=== PATIENT | male | born 1935 | race African-American/Black ===

== ENCOUNTER 2018-10-27 10:38 | Inpatient (IN) ==
[2018-10-27 12:49] LABS: Apearance,Urine Slightly Hazy (Clear); Bacteria,Urine Occasional /HPF (Few); Bilirubin,Urine Negative (Negative); Blood, Urine Negative (Negative); Glucose,Urine (UA) 150 mg/dL (Negative); Ketones,Urine Negative (Negative); Mucus,Urine Occasional /LPF (Occasional); Nitrite,Urine Negative (Negative); Protein,Urine 30 MG/DL; RBC,Urine 4 /HPF (0-4); Squamous Epithelial Cell,Urine Occasional /HPF (0-10); Urine Color Yellow (Yellow); Urine Specific Gravity 1.019 (1.001-1.035); Urine Urobilinogen < 2.0 EU/DL (0.2-1.0); WBC,Urine <1 /HPF (0-6)
[2018-10-27] MEDS ORDERED: ONDANSETRON 4 MG/2 ML VIAL IV STA (14:34)
[2018-10-27] MEDS ORDERED: HYDROmorphone 2 MG/1 ML VIAL IV STA (14:34)
[2018-10-27] MEDS ORDERED: ONDANSETRON 4 MG/2 ML VIAL ONE (14:35)
[2018-10-27] MEDS ORDERED: HYDROmorphone 2 MG/1 ML VIAL ONE (14:35)
[2018-10-27 14:57] LABS: Basophils % 0.4 % (0.0-0.8); Eosinophils # 0.1 10*3/uL (0.0-0.87); Eosinophils % 1.2 % (0.00-10.9); Hematocrit 34.2 VOL% (42.0-52.0); Hemoglobin 10.6 GM/DL (14.0-18.0); Immature Granulocytes % 0.6 %; Immature Granulocytes Absolute 0.06 #; Lymphocytes # 1.7 10*3/uL (1.4-4.0); Lymphocytes % 17.3 % (21.2-54.2); Mean Corpuscular Volume 93.4 FL (87-102); Mean Platelet Volume 9.6 FL (9.6-12.0); Monocytes % 11.4 % (1.7-12.7); Neutrophils % 69.1 % (38.7-73.9); Platelet Count 234 T/CUMM (130-400); Red Blood Count 3.66 MC/CUMM (3.8-5.5); Red Cell Distribution Width 13.2 % (9.3-17.3); White Blood Count 9.5 T/CUMM (4-12)
[2018-10-27] MEDS ORDERED: MECLIZINE 25 MG TABLET PO PRN (16:27)
[2018-10-27] MEDS ORDERED: DICLOFENAC 1% GEL 100 GM TUBE TOP PRN (16:27)
[2018-10-27] MEDS ORDERED: LORATADINE 10 MG TABLET PO PRN (16:27)
[2018-10-27] MEDS ORDERED: DEXTROSE 50% 25 GM/50 ML SYRINGE IV PRN (16:37)
[2018-10-27] MEDS ORDERED: GLUCAGON 1 MG VIAL IM PRN (16:37)
[2018-10-27] MEDS: FERROUS SULFATE 325 MG TABLET PO SCH (20:47)
[2018-10-27] MEDS: OMEGA 3 ACID ETHYL ESTERS 1 GM CAPSULE PO SCH (20:47)
[2018-10-27] MEDS: GABAPENTIN 400 MG CAPSULE PO SCH (20:47)
[2018-10-27] MEDS: DONEPEZIL 10 MG TABLET PO SCH (20:47)
[2018-10-27] MEDS: OXYBUTYNIN XL 5 MG TABLET PO SCH (20:58)
[2018-10-28 04:52] LABS: Calcium 8.7 MG/DL (8.5-10.1)
[2018-10-28] MEDS: LOSARTAN/HCTZ 50-12.5 MG TABLET PO SCH (08:36)
[2018-10-28] MEDS: ATORVASTATIN 80 MG TABLET PO SCH (08:36)
[2018-10-28] MEDS: GLIMEPIRIDE 4 MG TABLET PO SCH (08:36)
[2018-10-28] MEDS: FERROUS SULFATE 325 MG TABLET PO SCH ×2 (08:36→21:30)
[2018-10-28] MEDS: sitaGLIPtin 25 MG TABLET PO SCH (08:37)
[2018-10-28] MEDS: OMEGA 3 ACID ETHYL ESTERS 1 GM CAPSULE PO SCH ×2 (08:37→21:28)
[2018-10-28] MEDS: PARoxetine 20 MG TABLET PO SCH (08:37)
[2018-10-28] MEDS: CLOPIDOGREL 75 MG TABLET PO SCH (08:37)
[2018-10-28] MEDS: VITAMIN E 400 UNIT CAPSULE PO SCH (08:37)
[2018-10-28] MEDS: CHOLECALCIFEROL 400 UNIT TABLET PO SCH (08:37)
[2018-10-28] MEDS: GABAPENTIN 400 MG CAPSULE PO SCH ×2 (08:37→21:29)
[2018-10-28] MEDS ORDERED: Cyanocobalamin (Vitamin B-12) [Vitamin B-12] 2,500 MCG SL SCH (09:00)
[2018-10-28] MEDS ORDERED: BUPIVACAINE 0.5% 50 ML VIAL MISC INJ ONE (09:30)
[2018-10-28] MEDS ORDERED: BUPIVACAINE 0.5% 10 ML VIAL MISC INJ ONE (09:30)
[2018-10-28] MEDS ORDERED: BETAMETH SODIUM PHOS/ACETATE 30 MG/5 ML VIAL INTRAARTIC ONE ×2 (09:30→17:20)
[2018-10-28] MEDS ORDERED: LIDOCAINE 1% 20 ML VIAL MISC INJ ONE (09:30)
[2018-10-28 18:58] LABS: Cholesterol Crystals None Seen /LPF
[2018-10-28] MEDS: methylPREDNISolone SOD SUC 40 MG/1 ML VIAL IV SCH (20:53)
[2018-10-28 20:57] LABS: Neutrophils,Synovial Fluid 98 %
[2018-10-28] MEDS: DONEPEZIL 10 MG TABLET PO SCH (21:28)
[2018-10-28] MEDS: ACETAMINOPHEN/CODEINE 300-30 MG TABLET PO PRN (21:29)
[2018-10-28] MEDS: OXYBUTYNIN XL 5 MG TABLET PO SCH (21:30)
[2018-10-29 08:18] LABS: Cholesterol Crystals None Seen /LPF
[2018-10-29 08:31] LABS: Lymphocytes,Synovial Fluid 8 %; Neutrophils,Synovial Fluid 92 %
[2018-10-29] MEDS ORDERED: LIDOCAINE 1% 20 ML VIAL ONE (09:53)
[2018-10-29] MEDS ORDERED: DEXAMETHASONE 4 MG/1 ML VIAL ONE (09:53)
[2018-10-29] MEDS ORDERED: LACTATED RINGERS 1,000 ML IV SCH (10:30)
[2018-10-29] MEDS ORDERED: fentaNYL 100 MCG/2 ML VIAL ONE (11:17)
[2018-10-29] MEDS ORDERED: PROPOFOL 200 MG/20 ML VIAL IV ONE (11:17)
[2018-10-29] MEDS: methylPREDNISolone SOD SUC 40 MG/1 ML VIAL IV SCH ×2 (12:23→21:38)
[2018-10-29] MEDS: GABAPENTIN 400 MG CAPSULE PO SCH ×2 (12:24→21:39)
[2018-10-29] MEDS: CHOLECALCIFEROL 400 UNIT TABLET PO SCH (12:24)
[2018-10-29] MEDS: INSULIN LISPRO 100 UNIT/ML SUBCUT SCH ×3 (12:24→21:37)
[2018-10-29] MEDS: ATORVASTATIN 80 MG TABLET PO SCH (12:24)
[2018-10-29] MEDS: PARoxetine 20 MG TABLET PO SCH (12:25)
[2018-10-29] MEDS: LOSARTAN/HCTZ 50-12.5 MG TABLET PO SCH (12:25)
[2018-10-29] MEDS: CLOPIDOGREL 75 MG TABLET PO SCH (12:25)
[2018-10-29] MEDS: FERROUS SULFATE 325 MG TABLET PO SCH ×2 (12:25→21:39)
[2018-10-29] MEDS: OMEGA 3 ACID ETHYL ESTERS 1 GM CAPSULE PO SCH ×2 (12:25→21:39)
[2018-10-29] MEDS: sitaGLIPtin 25 MG TABLET PO SCH (12:25)
[2018-10-29] MEDS: VITAMIN E 400 UNIT CAPSULE PO SCH (12:26)
[2018-10-29] MEDS: GLIMEPIRIDE 4 MG TABLET PO SCH (12:26)
[2018-10-29] MEDS ORDERED: GLUCAGON 1 MG VIAL IM PRN (15:13)
[2018-10-29] MEDS ORDERED: DEXTROSE 50% 25 GM/50 ML SYRINGE IV PRN (15:13)
[2018-10-29] MEDS: OXYBUTYNIN XL 5 MG TABLET PO SCH (21:39)
[2018-10-29] MEDS: DONEPEZIL 10 MG TABLET PO SCH (21:39)
[2018-10-29] MEDS: ACETAMINOPHEN/CODEINE 300-30 MG TABLET PO PRN (23:34)
[2018-10-30 04:31] LABS: Basophils % 0.1 % (0.0-0.8); Hematocrit 28.5 VOL% (42.0-52.0); Hemoglobin 9.1 GM/DL (14.0-18.0); Immature Granulocytes % 1.2 %; Immature Granulocytes Absolute 0.21 #; Lymphocytes # 0.9 10*3/uL (1.4-4.0); Lymphocytes % 5.6 % (21.2-54.2); Mean Corpuscular HGB Conc 31.9 GM/DL (32-36); Mean Corpuscular Volume 89.9 FL (87-102); Mean Platelet Volume 9.8 FL (9.6-12.0); Monocytes % 3.9 % (1.7-12.7); Neutrophils % 89.2 % (38.7-73.9); Platelet Count 275 T/CUMM (130-400); Red Blood Count 3.17 MC/CUMM (3.8-5.5); Red Cell Distribution Width 12.7 % (9.3-17.3); White Blood Count 16.9 T/CUMM (4-12)
[2018-10-30 04:46] LABS: Calcium 9.1 MG/DL (8.5-10.1); Osmolality,Calculated 290.1 MOS/KG (273-304)
[2018-10-30] MEDS: methylPREDNISolone SOD SUC 40 MG/1 ML VIAL IV SCH ×2 (10:12→21:50)
[2018-10-30] MEDS: OMEGA 3 ACID ETHYL ESTERS 1 GM CAPSULE PO SCH ×2 (10:13→21:51)
[2018-10-30] MEDS: CHOLECALCIFEROL 400 UNIT TABLET PO SCH (10:13)
[2018-10-30] MEDS: GLIMEPIRIDE 4 MG TABLET PO SCH (10:13)
[2018-10-30] MEDS: INSULIN LISPRO 100 UNIT/ML SUBCUT SCH ×4 (10:13→21:52)
[2018-10-30] MEDS: VITAMIN E 400 UNIT CAPSULE PO SCH (10:13)
[2018-10-30] MEDS: ATORVASTATIN 80 MG TABLET PO SCH (10:14)
[2018-10-30] MEDS: LOSARTAN/HCTZ 50-12.5 MG TABLET PO SCH (10:14)
[2018-10-30] MEDS: CLOPIDOGREL 75 MG TABLET PO SCH (10:14)
[2018-10-30] MEDS: GABAPENTIN 400 MG CAPSULE PO SCH ×2 (10:14→21:50)
[2018-10-30] MEDS: FERROUS SULFATE 325 MG TABLET PO SCH ×2 (10:16→21:51)
[2018-10-30] MEDS: PARoxetine 20 MG TABLET PO SCH (10:16)
[2018-10-30] MEDS: sitaGLIPtin 25 MG TABLET PO SCH (10:16)
[2018-10-30] MEDS: SODIUM CHLORIDE 0.9% 1,000 ML IV SCH ×2 (10:30→23:13)
[2018-10-30] MEDS: DONEPEZIL 10 MG TABLET PO SCH (21:51)
[2018-10-30] MEDS: OXYBUTYNIN XL 5 MG TABLET PO SCH (21:51)
[2018-10-31 06:12] LABS: Calcium 9.3 MG/DL (8.5-10.1); Osmolality,Calculated 293.1 MOS/KG (273-304)
[2018-10-31] MEDS: OMEGA 3 ACID ETHYL ESTERS 1 GM CAPSULE PO SCH ×2 (08:53→21:04)
[2018-10-31] MEDS: methylPREDNISolone SOD SUC 40 MG/1 ML VIAL IV SCH ×2 (08:53→21:32)
[2018-10-31] MEDS: INSULIN LISPRO 100 UNIT/ML SUBCUT SCH ×4 (08:53→21:04)
[2018-10-31] MEDS: CHOLECALCIFEROL 400 UNIT TABLET PO SCH (08:54)
[2018-10-31] MEDS: GABAPENTIN 400 MG CAPSULE PO SCH ×2 (08:54→21:04)
[2018-10-31] MEDS: sitaGLIPtin 25 MG TABLET PO SCH (08:54)
[2018-10-31] MEDS: LOSARTAN/HCTZ 50-12.5 MG TABLET PO SCH (08:54)
[2018-10-31] MEDS: VITAMIN E 400 UNIT CAPSULE PO SCH (08:54)
[2018-10-31] MEDS: ATORVASTATIN 80 MG TABLET PO SCH (08:55)
[2018-10-31] MEDS: PARoxetine 20 MG TABLET PO SCH (08:55)
[2018-10-31] MEDS: FERROUS SULFATE 325 MG TABLET PO SCH ×2 (08:55→21:04)
[2018-10-31] MEDS: CLOPIDOGREL 75 MG TABLET PO SCH (08:55)
[2018-10-31] MEDS: GLIMEPIRIDE 4 MG TABLET PO SCH (08:55)
[2018-10-31] MEDS: SODIUM CHLORIDE 0.9% 1,000 ML IV SCH (14:16)
[2018-10-31] MEDS: OXYBUTYNIN XL 5 MG TABLET PO SCH (21:04)
[2018-10-31] MEDS: DONEPEZIL 10 MG TABLET PO SCH (21:04)
[2018-10-31] MEDS: ACETAMINOPHEN/CODEINE 300-30 MG TABLET PO PRN (21:05)
[2018-11-01 06:39] LABS: Calcium 8.7 MG/DL (8.5-10.1); Osmolality,Calculated 288.8 MOS/KG (273-304)
[2018-11-01] MEDS: CHOLECALCIFEROL 400 UNIT TABLET PO SCH (08:47)
[2018-11-01] MEDS: sitaGLIPtin 25 MG TABLET PO SCH (08:47)
[2018-11-01] MEDS: GABAPENTIN 400 MG CAPSULE PO SCH (08:48)
[2018-11-01] MEDS: CLOPIDOGREL 75 MG TABLET PO SCH (08:48)
[2018-11-01] MEDS: ATORVASTATIN 80 MG TABLET PO SCH (08:48)
[2018-11-01] MEDS: PARoxetine 20 MG TABLET PO SCH (08:48)
[2018-11-01] MEDS: VITAMIN E 400 UNIT CAPSULE PO SCH (08:48)
[2018-11-01] MEDS: GLIMEPIRIDE 4 MG TABLET PO SCH (08:48)
[2018-11-01] MEDS: methylPREDNISolone SOD SUC 40 MG/1 ML VIAL IV SCH (08:49)
[2018-11-01] MEDS: FERROUS SULFATE 325 MG TABLET PO SCH (08:49)
[2018-11-01] MEDS: OMEGA 3 ACID ETHYL ESTERS 1 GM CAPSULE PO SCH (08:49)
[2018-11-01] MEDS: INSULIN LISPRO 100 UNIT/ML SUBCUT SCH ×2 (08:49→12:40)
[2018-11-01] MEDS ORDERED: LOSARTAN/HCTZ 50-12.5 MG TABLET PO SCH (09:00)
[2018-11-01 12:44] VITALS: BP 139/60
== END 2018-11-01 12:20 | DRG 552 ==
LOC: EDUNIT# → N.EDINP 10:38 → N.ED 10:38 → N.EDINP 15:03 → N.2E 15:18
PROVIDERS: ADMIT Internal Medicine; ATTEND Internal Medicine

== ENCOUNTER 2021-02-28 10:40 | Observation (INO) ==
[2021-02-28 12:40] LABS: Basophils # 0.1 10*3/uL (0.0-0.2); Basophils % 0.7 % (0.0-0.8); Eosinophils # 0.3 10*3/uL (0.0-0.87); Eosinophils % 4.4 % (0.00-10.9); Hematocrit 30.7 VOL% (42.0-52.0); Hemoglobin 9.6 GM/DL (14.0-18.0); Immature Granulocytes % 0.4 %; Immature Granulocytes Absolute 0.03 #; Lymphocytes # 1.9 10*3/uL (1.4-4.0); Lymphocytes % 28.2 % (21.2-54.2); Mean Corpuscular HGB Conc 31.3 GM/DL (32-36); Mean Platelet Volume 9.7 FL (9.6-12.0); Neutrophils % 58.3 % (38.7-73.9); Platelet Count 160 T/CUMM (130-400); Red Blood Count 3.23 MC/CUMM (3.8-5.5); Red Cell Distribution Width 13.4 % (9.3-17.3); White Blood Count 6.8 T/CUMM (4-12)
[2021-02-28 13:01] LABS: INR 1.1; PT Patient Result 11.9 SECS (10.5-12.0); Partial Thromboplastin Time 28.3 SECS (23.9-33.8)
[2021-02-28 13:09] LABS: Albumin 3.1 G/DL (3.4-5.0); Bilirubin,Total 0.4 MG/DL (0.20-1.00); Calcium 8.6 MG/DL (8.5-10.1); Osmolality,Calculated 283.3 MOS/KG (273-304); Potassium 4.2 MMOL/L (3.5-5.1); Total Protein 6.9 G/DL (6.4-8.2)
[2021-02-28] MEDS ORDERED: DEXTROSE 50% 25 GM/50 ML VIAL IV STA (13:20)
[2021-02-28] MEDS ORDERED: ONDANSETRON 4 MG/2 ML VIAL IV PRN (13:29)
[2021-02-28] MEDS ORDERED: DICLOFENAC 1% GEL 100 GM TUBE TOP PRN (17:14)
[2021-02-28] MEDS ORDERED: MECLIZINE 25 MG TABLET PO PRN (17:14)
[2021-02-28] MEDS ORDERED: LORATADINE 10 MG TABLET PO PRN (17:14)
[2021-02-28] MEDS: OXYBUTYNIN XL 10 MG TABLET PO SCH (21:10)
[2021-02-28] MEDS: GABAPENTIN 400 MG CAPSULE PO SCH (21:10)
[2021-02-28] MEDS: DONEPEZIL 10 MG TABLET PO SCH (21:11)
[2021-02-28] MEDS: OMEGA 3 ACID ETHYL ESTERS 1 GM CAPSULE PO SCH (21:11)
[2021-02-28] MEDS: ATORVASTATIN 80 MG TABLET PO SCH (21:11)
[2021-02-28] MEDS: busPIRone 5 MG TABLET PO SCH (21:11)
[2021-02-28] MEDS: MEMANTINE 5 MG TABLET PO SCH (21:11)
[2021-02-28] MEDS: traMADol 50 MG TABLET PO PRN (21:12)
[2021-03-01 05:04] LABS: Basophils % 0.6 % (0.0-0.8); Eosinophils # 0.3 10*3/uL (0.0-0.87); Eosinophils % 4.7 % (0.00-10.9); Hematocrit 31.2 VOL% (42.0-52.0); Hemoglobin 9.8 GM/DL (14.0-18.0); Immature Granulocytes % 0.3 %; Immature Granulocytes Absolute 0.02 #; Lymphocytes # 1.7 10*3/uL (1.4-4.0); Lymphocytes % 26.2 % (21.2-54.2); Mean Corpuscular HGB Conc 31.4 GM/DL (32-36); Mean Corpuscular Volume 94.8 FL (87-102); Mean Platelet Volume 10.2 FL (9.6-12.0); Monocytes % 7.4 % (1.7-12.7); Neutrophils % 60.8 % (38.7-73.9); Platelet Count 185 T/CUMM (130-400); Red Blood Count 3.29 MC/CUMM (3.8-5.5); Red Cell Distribution Width 13.3 % (9.3-17.3); White Blood Count 6.4 T/CUMM (4-12)
[2021-03-01 05:26] LABS: Alanine Aminotransferase 12 U/L (16-61); Albumin 2.8 G/DL (3.4-5.0); Alkaline Phosphatase 66 U/L (45-117); Aspartate Amino Transferase 18 U/L (0-37); Bilirubin,Total < 0.39 MG/DL (0.20-1.00); Blood Urea Nitrogen 28 MG/DL (7-18); Carbon Dioxide 23 MMOL/L (21-32); Glucose 73 MG/DL (74-106); Osmolality,Calculated 285.3 MOS/KG (273-304); Potassium 4.1 MMOL/L (3.5-5.1); Sodium 141 MMOL/L (136-145); Total Protein 7.3 G/DL (6.4-8.2)
[2021-03-01 05:30] LABS: Estimated Glom Filtration Rate 45 ML/MIN
[2021-03-01] MEDS: LEVOTHYROXINE 50 MCG TABLET PO SCH (06:17)
[2021-03-01] MEDS: PANTOPRAZOLE 40 MG TABLET PO SCH (08:46)
[2021-03-01] MEDS: LOSARTAN/HCTZ 50-12.5 MG TABLET PO SCH (08:46)
[2021-03-01] MEDS: OMEGA 3 ACID ETHYL ESTERS 1 GM CAPSULE PO SCH ×2 (08:46→20:42)
[2021-03-01] MEDS: FOLIC ACID 1 MG TABLET PO SCH (08:46)
[2021-03-01] MEDS: PARoxetine 20 MG TABLET PO SCH (08:46)
[2021-03-01] MEDS: VITAMIN E 400 UNIT CAPSULE PO SCH (08:46)
[2021-03-01] MEDS: busPIRone 5 MG TABLET PO SCH ×2 (08:46→20:42)
[2021-03-01] MEDS: GABAPENTIN 400 MG CAPSULE PO SCH ×2 (08:47→20:42)
[2021-03-01] MEDS: [UNRECOGNIZED DRUG - OTHER] SL SCH (08:47)
[2021-03-01] MEDS: ASPIRIN 325 MG TABLET PO SCH (08:47)
[2021-03-01] MEDS: MEMANTINE 5 MG TABLET PO SCH ×2 (08:47→20:42)
[2021-03-01] MEDS: CHOLECALCIFEROL 400 UNIT TABLET PO SCH (08:47)
[2021-03-01] MEDS: sitaGLIPtin 25 MG TABLET PO SCH (08:53)
[2021-03-01] MEDS: CLOPIDOGREL 75 MG TABLET PO SCH (08:53)
[2021-03-01] MEDS: [UNRECOGNIZED DRUG - OTHER] PO SCH (08:57)
[2021-03-01] MEDS: OXYBUTYNIN XL 10 MG TABLET PO SCH (20:42)
[2021-03-01] MEDS: ATORVASTATIN 80 MG TABLET PO SCH (20:42)
[2021-03-01] MEDS: DONEPEZIL 10 MG TABLET PO SCH (20:42)
[2021-03-01] MEDS: traMADol 50 MG TABLET PO PRN (20:42)
[2021-03-02 05:02] LABS: Basophils # 0.1 10*3/uL (0.0-0.2); Eosinophils # 0.3 10*3/uL (0.0-0.87); Eosinophils % 4.5 % (0.00-10.9); Hematocrit 28.3 VOL% (42.0-52.0); Immature Granulocytes % 0.2 %; Immature Granulocytes Absolute 0.01 #; Lymphocytes # 1.7 10*3/uL (1.4-4.0); Lymphocytes % 26.9 % (21.2-54.2); Mean Corpuscular HGB Conc 31.8 GM/DL (32-36); Mean Corpuscular Volume 94.3 FL (87-102); Mean Platelet Volume 10.2 FL (9.6-12.0); Monocytes % 8.1 % (1.7-12.7); Neutrophils % 59.3 % (38.7-73.9); Platelet Count 185 T/CUMM (130-400); Red Cell Distribution Width 13.2 % (9.3-17.3); White Blood Count 6.2 T/CUMM (4-12)
[2021-03-02 05:32] LABS: Calcium 8.5 MG/DL (8.5-10.1); Osmolality,Calculated 282.7 MOS/KG (273-304); Potassium 4.5 MMOL/L (3.5-5.1)
[2021-03-02] MEDS: LEVOTHYROXINE 50 MCG TABLET PO SCH (06:18)
[2021-03-02] MEDS: CHOLECALCIFEROL 400 UNIT TABLET PO SCH (08:10)
[2021-03-02] MEDS: LOSARTAN/HCTZ 50-12.5 MG TABLET PO SCH (08:10)
[2021-03-02] MEDS: sitaGLIPtin 25 MG TABLET PO SCH (08:10)
[2021-03-02] MEDS: FOLIC ACID 1 MG TABLET PO SCH (08:10)
[2021-03-02] MEDS: OMEGA 3 ACID ETHYL ESTERS 1 GM CAPSULE PO SCH (08:10)
[2021-03-02] MEDS: ASPIRIN 325 MG TABLET PO SCH (08:10)
[2021-03-02] MEDS: GABAPENTIN 400 MG CAPSULE PO SCH (08:10)
[2021-03-02] MEDS: MEMANTINE 5 MG TABLET PO SCH (08:10)
[2021-03-02] MEDS: PARoxetine 20 MG TABLET PO SCH (08:10)
[2021-03-02] MEDS: CLOPIDOGREL 75 MG TABLET PO SCH (08:10)
[2021-03-02] MEDS: VITAMIN E 400 UNIT CAPSULE PO SCH (08:10)
[2021-03-02] MEDS: PANTOPRAZOLE 40 MG TABLET PO SCH (08:11)
[2021-03-02] MEDS: [UNRECOGNIZED DRUG - OTHER] SL SCH (08:11)
[2021-03-02] MEDS: [UNRECOGNIZED DRUG - OTHER] PO SCH (08:11)
[2021-03-02] MEDS: busPIRone 5 MG TABLET PO SCH (08:11)
[2021-03-02 11:56] VITALS: BP 150/64
[2021-03-03] MEDS ORDERED: METHOTREXATE 2.5 MG TABLET PO SCH (09:00)
== END 2021-03-02 12:33 | disposition home health service (06) ==
LOC: EDUNIT# → EDBD → N.EDINP 10:40 → N.ED 10:40 → N.3E 17:05
PROVIDERS: ADMIT Internal Medicine; ATTEND Internal Medicine

== ENCOUNTER 2021-03-26 09:04 | Inpatient (IN) ==
[2021-03-26 09:52] LABS: Basophils % 0.5 % (0.0-0.8); Eosinophils # 0.2 10*3/uL (0.0-0.87); Eosinophils % 1.9 % (0.00-10.9); Hematocrit 28.6 VOL% (42.0-52.0); Hemoglobin 8.8 GM/DL (14.0-18.0); Immature Granulocytes % 0.6 %; Immature Granulocytes Absolute 0.05 #; Lymphocytes # 1.4 10*3/uL (1.4-4.0); Lymphocytes % 17.1 % (21.2-54.2); Mean Corpuscular HGB Conc 30.8 GM/DL (32-36); Mean Corpuscular Volume 93.8 FL (87-102); Mean Platelet Volume 10.1 FL (9.6-12.0); Monocytes % 6.2 % (1.7-12.7); Neutrophils % 73.7 % (38.7-73.9); Platelet Count 231 T/CUMM (130-400); Red Blood Count 3.05 MC/CUMM (3.8-5.5); White Blood Count 7.9 T/CUMM (4-12)
[2021-03-26 10:13] LABS: Calcium 9.2 MG/DL (8.5-10.1); Osmolality,Calculated 284.7 MOS/KG (273-304); Potassium 4.1 MMOL/L (3.5-5.1)
[2021-03-26] MEDS ORDERED: ONDANSETRON 4 MG/2 ML VIAL IV STA (10:13)
[2021-03-26] MEDS ORDERED: HYDROmorphone 2 MG/1 ML VIAL IV STA ×2 (10:13→12:33)
[2021-03-26] MEDS ORDERED: DEXTROSE 50% 25 GM/50 ML VIAL IV PRN (11:49)
[2021-03-26] MEDS ORDERED: GLUCAGON 1 MG VIAL IM PRN (11:49)
[2021-03-26] MEDS ORDERED: DICLOFENAC 1% GEL 100 GM TUBE TOP PRN (11:51)
[2021-03-26] MEDS ORDERED: LORATADINE 10 MG TABLET PO PRN (11:51)
[2021-03-26] MEDS ORDERED: BACLOFEN 20 MG TABLET PO ONE (12:14)
[2021-03-26 13:07] LABS: Uric Acid 5.4 MG/DL (3.5-7.2)
[2021-03-26] MEDS: SODIUM CHLORIDE 0.45% 1,000 ML IV SCH (13:20)
[2021-03-26] MEDS: BACLOFEN 10 MG TABLET PO SCH ×2 (15:03→21:20)
[2021-03-26] MEDS: ACETAMINOPHEN 325 MG TABLET PO PRN (15:03)
[2021-03-26] MEDS: OXYBUTYNIN XL 10 MG TABLET PO SCH (18:03)
[2021-03-26] MEDS: FONDAPARINUX 2.5 MG/0.5 ML SYRINGE SUBCUT SCH (21:19)
[2021-03-26] MEDS: ATORVASTATIN 80 MG TABLET PO SCH (21:19)
[2021-03-26] MEDS: AMITRIPTYLINE 10 MG TABLET PO SCH (21:19)
[2021-03-26] MEDS: busPIRone 5 MG TABLET PO SCH (21:19)
[2021-03-26] MEDS: GABAPENTIN 400 MG CAPSULE PO SCH (21:19)
[2021-03-26] MEDS: INSULIN LISPRO 100 UNIT/ML SUBCUT SCH (21:19)
[2021-03-26] MEDS: OMEGA 3 ACID ETHYL ESTERS 1 GM CAPSULE PO SCH (21:19)
[2021-03-26] MEDS: DOCUSATE SODIUM 100 MG CAPSULE PO SCH (21:20)
[2021-03-26] MEDS: DONEPEZIL 10 MG TABLET PO SCH (21:20)
[2021-03-26] MEDS: MEMANTINE 5 MG TABLET PO SCH (21:20)
[2021-03-27] MEDS: SODIUM CHLORIDE 0.45% 1,000 ML IV SCH ×2 (00:53→11:00)
[2021-03-27 05:13] LABS: Basophils # 0.1 10*3/uL (0.0-0.2); Basophils % 0.6 % (0.0-0.8); Eosinophils # 0.2 10*3/uL (0.0-0.87); Eosinophils % 2.3 % (0.00-10.9); Hematocrit 26.3 VOL% (42.0-52.0); Hemoglobin 8.3 GM/DL (14.0-18.0); Immature Granulocytes % 0.5 %; Immature Granulocytes Absolute 0.04 #; Lymphocytes # 1.6 10*3/uL (1.4-4.0); Lymphocytes % 19.8 % (21.2-54.2); Mean Corpuscular HGB Conc 31.6 GM/DL (32-36); Mean Corpuscular Volume 93.9 FL (87-102); Mean Platelet Volume 10.4 FL (9.6-12.0); Monocytes % 7.8 % (1.7-12.7); Platelet Count 215 T/CUMM (130-400)
[2021-03-27] MEDS: LEVOTHYROXINE 50 MCG TABLET PO SCH (05:37)
[2021-03-27] MEDS: INSULIN LISPRO 100 UNIT/ML SUBCUT SCH ×4 (08:50→21:13)
[2021-03-27] MEDS: CYANOCOBALAMIN 500 MCG TABLET PO SCH (09:11)
[2021-03-27] MEDS: busPIRone 5 MG TABLET PO SCH ×2 (09:12→20:59)
[2021-03-27] MEDS: VITAMIN E 400 UNIT CAPSULE PO SCH (09:12)
[2021-03-27] MEDS: CHOLECALCIFEROL 400 UNIT TABLET PO SCH (09:12)
[2021-03-27] MEDS: sitaGLIPtin 25 MG TABLET PO SCH (09:13)
[2021-03-27] MEDS: GABAPENTIN 400 MG CAPSULE PO SCH ×2 (09:13→20:59)
[2021-03-27] MEDS: DOCUSATE SODIUM 100 MG CAPSULE PO SCH ×2 (09:13→20:59)
[2021-03-27] MEDS: LOSARTAN/HCTZ 50-12.5 MG TABLET PO SCH (09:14)
[2021-03-27] MEDS: CLOPIDOGREL 75 MG TABLET PO SCH (09:14)
[2021-03-27] MEDS: FOLIC ACID 1 MG TABLET PO SCH (09:14)
[2021-03-27] MEDS: MEMANTINE 5 MG TABLET PO SCH ×2 (09:15→20:59)
[2021-03-27] MEDS: PANTOPRAZOLE 40 MG TABLET PO SCH (09:15)
[2021-03-27] MEDS: OMEGA 3 ACID ETHYL ESTERS 1 GM CAPSULE PO SCH ×2 (09:15→20:59)
[2021-03-27] MEDS: BACLOFEN 10 MG TABLET PO SCH (09:15)
[2021-03-27] MEDS: [UNRECOGNIZED DRUG - OTHER] PO SCH (09:41)
[2021-03-27 09:53] LABS: Alanine Aminotransferase 11 U/L (16-61); Albumin 2.7 G/DL (3.4-5.0); Alkaline Phosphatase 84 U/L (45-117); Aspartate Amino Transferase 19 U/L (0-37); Bilirubin,Direct < 0.100 MG/DL (0.0-0.20); Bilirubin,Indirect 0.3 MG/DL (0.0-1.0); Bilirubin,Total < 0.39 MG/DL (0.20-1.00); Total Protein 7.2 G/DL (6.4-8.2)
[2021-03-27] MEDS: methylPREDNISolone SOD SUC 40 MG/1 ML VIAL IV SCH ×2 (10:55→20:59)
[2021-03-27] MEDS: ACETAMINOPHEN 325 MG TABLET PO PRN (12:28)
[2021-03-27] MEDS: hydrALAZINE 20 MG/1 ML VIAL IV PRN ×2 (12:29→17:28)
[2021-03-27 17:10] LABS: Bacteria,Urine Moderate /HPF (Few); Bilirubin,Urine Negative (Negative); Blood, Urine Small mg/dL (Negative); Glucose,Urine (UA) Negative (Negative); Hyaline Casts,Urine 1 /LPF (0-3); Ketones,Urine Negative (Negative); Nitrite,Urine Negative (Negative); Protein,Urine Negative; RBC,Urine 3 /HPF (0-4); Squamous Epithelial Cell,Urine Occasional /HPF (0-10); Urine Appearance Slightly Hazy (Clear); Urine Color Straw (Yellow); Urine Specific Gravity 1.008 (1.001-1.035); Urine Urobilinogen < 2.0 EU/DL (0.2-1.0)
[2021-03-27] MEDS: AMITRIPTYLINE 10 MG TABLET PO SCH (20:59)
[2021-03-27] MEDS: FONDAPARINUX 2.5 MG/0.5 ML SYRINGE SUBCUT SCH (20:59)
[2021-03-27] MEDS: ATORVASTATIN 80 MG TABLET PO SCH (20:59)
[2021-03-27] MEDS: DONEPEZIL 10 MG TABLET PO SCH (20:59)
[2021-03-27] MEDS: OXYBUTYNIN XL 10 MG TABLET PO SCH (21:02)
[2021-03-28 06:06] LABS: Albumin 3.1 G/DL (3.4-5.0); Bilirubin,Total 1.3 MG/DL (0.20-1.00); Calcium 10.2 MG/DL (8.5-10.1); Osmolality,Calculated 282.8 MOS/KG (273-304); Potassium 4.5 MMOL/L (3.5-5.1); Total Protein 8.8 G/DL (6.4-8.2)
[2021-03-28] MEDS: LEVOTHYROXINE 50 MCG TABLET PO SCH (06:07)
[2021-03-28] MEDS: GABAPENTIN 400 MG CAPSULE PO SCH ×2 (08:07→21:02)
[2021-03-28] MEDS: LOSARTAN/HCTZ 50-12.5 MG TABLET PO SCH (08:07)
[2021-03-28] MEDS: VITAMIN E 400 UNIT CAPSULE PO SCH (08:07)
[2021-03-28] MEDS: hydrALAZINE 20 MG/1 ML VIAL IV PRN (08:07)
[2021-03-28] MEDS: FOLIC ACID 1 MG TABLET PO SCH (08:07)
[2021-03-28] MEDS: OMEGA 3 ACID ETHYL ESTERS 1 GM CAPSULE PO SCH ×2 (08:07→21:02)
[2021-03-28] MEDS: busPIRone 5 MG TABLET PO SCH ×2 (08:08→21:03)
[2021-03-28] MEDS: MEMANTINE 5 MG TABLET PO SCH ×2 (08:08→21:02)
[2021-03-28] MEDS: PANTOPRAZOLE 40 MG TABLET PO SCH (08:08)
[2021-03-28] MEDS: sitaGLIPtin 25 MG TABLET PO SCH (08:08)
[2021-03-28] MEDS: DOCUSATE SODIUM 100 MG CAPSULE PO SCH ×2 (08:08→21:02)
[2021-03-28] MEDS: CLOPIDOGREL 75 MG TABLET PO SCH (08:08)
[2021-03-28] MEDS: CYANOCOBALAMIN 500 MCG TABLET PO SCH (08:08)
[2021-03-28] MEDS: INSULIN LISPRO 100 UNIT/ML SUBCUT SCH ×4 (08:45→21:54)
[2021-03-28] MEDS: CHOLECALCIFEROL 400 UNIT TABLET PO SCH (08:46)
[2021-03-28] MEDS: methylPREDNISolone SOD SUC 40 MG/1 ML VIAL IV SCH ×2 (08:46→21:03)
[2021-03-28] MEDS: [UNRECOGNIZED DRUG - OTHER] PO SCH (08:46)
[2021-03-28] MEDS: traMADol 50 MG TABLET PO PRN ×2 (16:58→22:33)
[2021-03-28] MEDS: DONEPEZIL 10 MG TABLET PO SCH (21:02)
[2021-03-28] MEDS: AMITRIPTYLINE 10 MG TABLET PO SCH (21:02)
[2021-03-28] MEDS: OXYBUTYNIN XL 10 MG TABLET PO SCH (21:02)
[2021-03-28] MEDS: FONDAPARINUX 2.5 MG/0.5 ML SYRINGE SUBCUT SCH (21:03)
[2021-03-28] MEDS: ATORVASTATIN 80 MG TABLET PO SCH (21:03)
[2021-03-28] MEDS: SODIUM CHLORIDE 0.45% 1,000 ML IV SCH ×2 (21:07)
[2021-03-29] MEDS: LEVOTHYROXINE 50 MCG TABLET PO SCH (05:40)
[2021-03-29] MEDS: INSULIN LISPRO 100 UNIT/ML SUBCUT SCH ×2 (08:33→12:26)
[2021-03-29] MEDS: DOCUSATE SODIUM 100 MG CAPSULE PO SCH (08:34)
[2021-03-29] MEDS: VITAMIN E 400 UNIT CAPSULE PO SCH (08:34)
[2021-03-29] MEDS: GABAPENTIN 400 MG CAPSULE PO SCH (08:34)
[2021-03-29] MEDS: FOLIC ACID 1 MG TABLET PO SCH (08:34)
[2021-03-29] MEDS: LOSARTAN/HCTZ 50-12.5 MG TABLET PO SCH (08:34)
[2021-03-29] MEDS: MEMANTINE 5 MG TABLET PO SCH (08:34)
[2021-03-29] MEDS: CLOPIDOGREL 75 MG TABLET PO SCH (08:34)
[2021-03-29] MEDS: busPIRone 5 MG TABLET PO SCH (08:34)
[2021-03-29] MEDS: OMEGA 3 ACID ETHYL ESTERS 1 GM CAPSULE PO SCH (08:34)
[2021-03-29] MEDS: CHOLECALCIFEROL 400 UNIT TABLET PO SCH (08:34)
[2021-03-29] MEDS: sitaGLIPtin 25 MG TABLET PO SCH (08:34)
[2021-03-29] MEDS: PANTOPRAZOLE 40 MG TABLET PO SCH (08:34)
[2021-03-29] MEDS: methylPREDNISolone SOD SUC 40 MG/1 ML VIAL IV SCH (08:35)
[2021-03-29] MEDS: [UNRECOGNIZED DRUG - OTHER] PO SCH (08:35)
[2021-03-29] MEDS: CYANOCOBALAMIN 500 MCG TABLET PO SCH (09:49)
[2021-03-29 12:15] VITALS: BP 163/54
[2021-03-31] MEDS ORDERED: METHOTREXATE 2.5 MG TABLET PO SCH (09:00)
== END 2021-03-29 13:30 | disposition swing bed (61) | DRG 546 ==
LOC: EDBD → EDUNIT# → N.EDINP 09:04 → N.ED 09:04 → N.3E 12:51
PROVIDERS: ADMIT Internal Medicine; ATTEND Internal Medicine

== ENCOUNTER 2021-03-31 18:19 | Inpatient (IN) ==
[2021-03-31] MEDS ORDERED: ONDANSETRON 4 MG/2 ML VIAL ONE (18:57)
[2021-03-31] MEDS ORDERED: MORPHINE 2 MG/1 ML SYRINGE ONE (18:57)
[2021-03-31] MEDS ORDERED: ONDANSETRON 4 MG/2 ML VIAL IV STA ×2 (19:03→20:45)
[2021-03-31] MEDS ORDERED: MORPHINE 2 MG/1 ML SYRINGE IV STA (19:03)
[2021-03-31 20:00] LABS: Basophils # 0.1 10*3/uL (0.0-0.2); Basophils % 0.5 % (0.0-0.8); Eosinophils # 0.1 10*3/uL (0.0-0.87); Eosinophils % 0.5 % (0.00-10.9); Hemoglobin 9.5 GM/DL (14.0-18.0); Immature Granulocytes Absolute 0.13 #; Lymphocytes # 1.2 10*3/uL (1.4-4.0); Lymphocytes % 9.2 % (21.2-54.2); Mean Corpuscular HGB Conc 31.7 GM/DL (32-36); Mean Corpuscular Volume 91.2 FL (87-102); Mean Platelet Volume 10.4 FL (9.6-12.0); Monocytes % 6.8 % (1.7-12.7); Platelet Count 280 T/CUMM (130-400); Red Blood Count 3.29 MC/CUMM (3.8-5.5); Red Cell Distribution Width 13.4 % (9.3-17.3)
[2021-03-31 20:10] LABS: PT Patient Result 11.4 SECS (10.5-12.0); Partial Thromboplastin Time 25.6 SECS (23.8-32.1)
[2021-03-31 20:15] LABS: Calcium 9.6 MG/DL (8.5-10.1); Osmolality,Calculated 285.1 MOS/KG (273-304); Potassium 4.7 MMOL/L (3.5-5.1)
[2021-03-31] MEDS ORDERED: HYDROmorphone 2 MG/1 ML VIAL ONE (20:41)
[2021-03-31] MEDS ORDERED: HYDROmorphone 2 MG/1 ML VIAL IV STA (20:45)
[2021-03-31] MEDS ORDERED: ACETAMINOPHEN 325 MG TABLET PO PRN (22:12)
[2021-03-31] MEDS ORDERED: DEXTROSE 50% 25 GM/50 ML VIAL IV PRN (22:12)
[2021-03-31] MEDS ORDERED: ONDANSETRON 4 MG/2 ML VIAL IV PRN (22:12)
[2021-03-31] MEDS ORDERED: GLUCAGON 1 MG VIAL IM PRN (22:12)
[2021-03-31] MEDS: SODIUM CHLORIDE 0.45% 1,000 ML IV SCH (22:51)
[2021-04-01] MEDS: LEVOTHYROXINE 50 MCG TABLET PO SCH (05:08)
[2021-04-01] MEDS: SODIUM CHLORIDE 0.45% 1,000 ML IV SCH ×3 (06:27→23:56)
[2021-04-01] MEDS: INSULIN REGULAR 100 UNIT/ML SUBCUT SCH ×4 (09:20→21:30)
[2021-04-01] MEDS: PANTOPRAZOLE 40 MG TABLET PO SCH (09:21)
[2021-04-01] MEDS: MEMANTINE 5 MG TABLET PO SCH ×2 (09:21→20:33)
[2021-04-01] MEDS: oxyCODONE/ACETAMINOPHEN 5-325 MG TABLET PO PRN (09:21)
[2021-04-01] MEDS: PARoxetine 20 MG TABLET PO SCH (09:21)
[2021-04-01] MEDS: DOCUSATE SODIUM 100 MG CAPSULE PO SCH ×2 (09:21→20:33)
[2021-04-01] MEDS: DONEPEZIL 10 MG TABLET PO SCH (20:33)
[2021-04-01] MEDS: HYDROmorphone 2 MG/1 ML VIAL IV PRN (20:34)
[2021-04-02] MEDS: HYDROmorphone 2 MG/1 ML VIAL IV PRN (05:17)
[2021-04-02 05:38] LABS: Basophils # 0.1 10*3/uL (0.0-0.2); Basophils % 0.8 % (0.0-0.8); Eosinophils # 0.1 10*3/uL (0.0-0.87); Eosinophils % 1.2 % (0.00-10.9); Hematocrit 28.3 VOL% (42.0-52.0); Immature Granulocytes % 0.6 %; Immature Granulocytes Absolute 0.05 #; Lymphocytes # 1.7 10*3/uL (1.4-4.0); Lymphocytes % 18.6 % (21.2-54.2); Mean Corpuscular HGB Conc 31.8 GM/DL (32-36); Mean Platelet Volume 10.3 FL (9.6-12.0); Monocytes % 5.2 % (1.7-12.7); Neutrophils % 73.6 % (38.7-73.9); Platelet Count 232 T/CUMM (130-400); Red Blood Count 3.01 MC/CUMM (3.8-5.5); Red Cell Distribution Width 13.6 % (9.3-17.3); White Blood Count 8.9 T/CUMM (4-12)
[2021-04-02] MEDS: hydrALAZINE 20 MG/1 ML VIAL IV PRN (05:44)
[2021-04-02 06:08] LABS: Albumin 2.6 G/DL (3.4-5.0); Bilirubin,Total 0.4 MG/DL (0.20-1.00); Calcium 9.1 MG/DL (8.5-10.1); Potassium 4.4 MMOL/L (3.5-5.1)
[2021-04-02] MEDS: LEVOTHYROXINE 50 MCG TABLET PO SCH (06:20)
[2021-04-02] MEDS: SODIUM CHLORIDE 0.45% 1,000 ML IV SCH ×3 (06:48→22:00)
[2021-04-02] MEDS ORDERED: fentaNYL 100 MCG/2 ML VIAL ONE (06:55)
[2021-04-02] MEDS ORDERED: ROCURONIUM 50 MG/5 ML VIAL IV ONE (06:55)
[2021-04-02] MEDS ORDERED: propofoL 200 MG/20 ML VIAL IV ONE (06:55)
[2021-04-02] MEDS ORDERED: LIDOCAINE 2% 5 ML VIAL ONE (06:55)
[2021-04-02] MEDS ORDERED: ceFAZolin 1,000 MG VIAL ONE (07:36)
[2021-04-02] MEDS ORDERED: ONDANSETRON 4 MG/2 ML VIAL IV PRN (08:12)
[2021-04-02] MEDS ORDERED: HYDROmorphone 2 MG/1 ML VIAL IV PRN (08:12)
[2021-04-02] MEDS: INSULIN REGULAR 100 UNIT/ML SUBCUT SCH ×4 (08:52→22:06)
[2021-04-02] MEDS ORDERED: ONDANSETRON 4 MG/2 ML VIAL ONE (09:03)
[2021-04-02] MEDS ORDERED: SODIUM CHLORIDE 0.9% 1,000 ML IV ONE (09:03)
[2021-04-02] MEDS ORDERED: SEVOFLURANE 1 UNIT/15 MINUTE INH ONE (09:03)
[2021-04-02] MEDS ORDERED: NEOSTIGMINE 10 MG/10 ML VIAL ONE (09:11)
[2021-04-02] MEDS ORDERED: GLYCOPYRROLATE 0.4 MG/2 ML VIAL ONE (09:11)
[2021-04-02] MEDS ORDERED: HYDROmorphone 2 MG/1 ML VIAL ONE (09:17)
[2021-04-02] MEDS ORDERED: ROPIVACAINE 0.5% 30 ML VIAL ONE (09:33)
[2021-04-02] MEDS ORDERED: METOPROLOL TARTRATE 5 MG/5 ML VIAL IV ONE ×2 (10:26)
[2021-04-02] MEDS ORDERED: ALBUMIN 5% 12.5 GM/250 ML VIAL IV ONE ×2 (10:47→10:51)
[2021-04-02] MEDS: PANTOPRAZOLE 40 MG TABLET PO SCH (11:58)
[2021-04-02] MEDS: DOCUSATE SODIUM 100 MG CAPSULE PO SCH ×2 (11:58→22:06)
[2021-04-02] MEDS: PARoxetine 20 MG TABLET PO SCH (11:58)
[2021-04-02] MEDS: MEMANTINE 5 MG TABLET PO SCH ×2 (11:58→22:06)
[2021-04-02] MEDS: ceFAZolin 2,000 MG/50 ML DUPLEX IV SCH (16:32)
[2021-04-02] MEDS: DONEPEZIL 10 MG TABLET PO SCH (22:06)
[2021-04-03] MEDS: ceFAZolin 2,000 MG/50 ML DUPLEX IV SCH (00:06)
[2021-04-03] MEDS: HYDROmorphone 2 MG/1 ML VIAL IV PRN (00:07)
[2021-04-03] MEDS: LEVOTHYROXINE 50 MCG TABLET PO SCH (05:33)
[2021-04-03] MEDS: SODIUM CHLORIDE 0.45% 1,000 ML IV SCH (05:34)
[2021-04-03] MEDS: DOCUSATE SODIUM 100 MG CAPSULE PO SCH ×2 (08:58→21:06)
[2021-04-03] MEDS: PARoxetine 20 MG TABLET PO SCH (08:58)
[2021-04-03] MEDS: MEMANTINE 5 MG TABLET PO SCH ×2 (08:59→21:05)
[2021-04-03] MEDS: INSULIN REGULAR 100 UNIT/ML SUBCUT SCH ×4 (08:59→21:05)
[2021-04-03] MEDS: PANTOPRAZOLE 40 MG TABLET PO SCH (08:59)
[2021-04-03] MEDS ORDERED: PANTOPRAZOLE 40 MG TABLET PO SCH (09:00)
[2021-04-03] MEDS ORDERED: ASPIRIN 325 MG TABLET PO SCH (09:00)
[2021-04-03] MEDS: ASPIRIN CHEW 81 MG TABLET PO SCH (09:06)
[2021-04-03 09:12] LABS: Calcium 8.6 MG/DL (8.5-10.1); Osmolality,Calculated 283.2 MOS/KG (273-304); Potassium 4.6 MMOL/L (3.5-5.1)
[2021-04-03] MEDS: oxyCODONE/ACETAMINOPHEN 5-325 MG TABLET PO PRN ×2 (12:25→22:18)
[2021-04-03] MEDS: DONEPEZIL 10 MG TABLET PO SCH (21:06)
[2021-04-04] MEDS: HYDROmorphone 2 MG/1 ML VIAL IV PRN ×2 (05:02→19:52)
[2021-04-04] MEDS: LEVOTHYROXINE 50 MCG TABLET PO SCH (05:29)
[2021-04-04 06:47] LABS: Basophils % 0.3 % (0.0-0.8); Eosinophils # 0.1 10*3/uL (0.0-0.87); Eosinophils % 1.2 % (0.00-10.9); Hematocrit 22.2 VOL% (42.0-52.0); Hemoglobin 6.9 GM/DL (14.0-18.0); Immature Granulocytes % 0.8 %; Immature Granulocytes Absolute 0.06 #; Lymphocytes # 1.1 10*3/uL (1.4-4.0); Lymphocytes % 14.2 % (21.2-54.2); Mean Corpuscular HGB Conc 31.1 GM/DL (32-36); Mean Corpuscular Volume 93.7 FL (87-102); Mean Platelet Volume 9.8 FL (9.6-12.0); Monocytes % 8.5 % (1.7-12.7); Platelet Count 183 T/CUMM (130-400); Red Blood Count 2.37 MC/CUMM (3.8-5.5); Red Cell Distribution Width 13.6 % (9.3-17.3); White Blood Count 7.8 T/CUMM (4-12)
[2021-04-04] MEDS ORDERED: SODIUM CHLORIDE 0.9% 1,000 ML IV PRN (07:39)
[2021-04-04] MEDS: PARoxetine 20 MG TABLET PO SCH (08:43)
[2021-04-04] MEDS: INSULIN REGULAR 100 UNIT/ML SUBCUT SCH ×4 (08:43→21:43)
[2021-04-04] MEDS: PANTOPRAZOLE 40 MG TABLET PO SCH (08:43)
[2021-04-04] MEDS: ASPIRIN CHEW 81 MG TABLET PO SCH (08:43)
[2021-04-04] MEDS: MEMANTINE 5 MG TABLET PO SCH ×2 (08:43→21:43)
[2021-04-04] MEDS: DOCUSATE SODIUM 100 MG CAPSULE PO SCH ×2 (08:43→21:43)
[2021-04-04] MEDS: MAGNESIUM HYDROXIDE SUSP 30 ML UDCUP PO PRN (14:30)
[2021-04-04] MEDS: hydrALAZINE 20 MG/1 ML VIAL IV PRN (14:32)
[2021-04-04] MEDS: DONEPEZIL 10 MG TABLET PO SCH (21:43)
[2021-04-04] MEDS: oxyCODONE/ACETAMINOPHEN 5-325 MG TABLET PO PRN (21:56)
[2021-04-05] MEDS: oxyCODONE/ACETAMINOPHEN 5-325 MG TABLET PO PRN (03:26)
[2021-04-05] MEDS: MAGNESIUM HYDROXIDE SUSP 30 ML UDCUP PO PRN (03:35)
[2021-04-05] MEDS: LEVOTHYROXINE 50 MCG TABLET PO SCH (05:20)
[2021-04-05 05:57] LABS: Basophils % 0.4 % (0.0-0.8); Eosinophils # 0.1 10*3/uL (0.0-0.87); Eosinophils % 1.7 % (0.00-10.9); Hematocrit 32.2 VOL% (42.0-52.0); Hemoglobin 9.4 GM/DL (14.0-18.0); Immature Granulocytes Absolute 0.08 #; Lymphocytes # 1.3 10*3/uL (1.4-4.0); Lymphocytes % 16.9 % (21.2-54.2); Mean Corpuscular HGB Conc 29.2 GM/DL (32-36); Mean Corpuscular Volume 93.9 FL (87-102); Mean Platelet Volume 9.8 FL (9.6-12.0); Monocytes % 8.5 % (1.7-12.7); Neutrophils % 71.5 % (38.7-73.9); Platelet Count 191 T/CUMM (130-400); Red Blood Count 3.43 MC/CUMM (3.8-5.5); Red Cell Distribution Width 17.1 % (9.3-17.3); White Blood Count 7.6 T/CUMM (4-12)
[2021-04-05 06:26] LABS: Calcium 9.4 MG/DL (8.5-10.1); Osmolality,Calculated 286.8 MOS/KG (273-304); Potassium 4.5 MMOL/L (3.5-5.1)
[2021-04-05] MEDS: PARoxetine 20 MG TABLET PO SCH (08:24)
[2021-04-05] MEDS: ASPIRIN CHEW 81 MG TABLET PO SCH (08:24)
[2021-04-05] MEDS: PANTOPRAZOLE 40 MG TABLET PO SCH (08:24)
[2021-04-05] MEDS: INSULIN REGULAR 100 UNIT/ML SUBCUT SCH ×2 (08:24→11:39)
[2021-04-05] MEDS: DOCUSATE SODIUM 100 MG CAPSULE PO SCH (08:24)
[2021-04-05] MEDS: MEMANTINE 5 MG TABLET PO SCH (08:25)
[2021-04-05 11:22] VITALS: BP 159/60
== END 2021-04-05 15:22 | DRG 522 ==
LOC: EDUNIT# → EDBD → N.ED 18:19 → N.EDINP 21:00 → N.3E 21:51
PROVIDERS: ADMIT Internal Medicine; ATTEND Internal Medicine

== ENCOUNTER 2022-03-22 10:21 | Observation (INO) ==
[2022-03-22] MEDS ORDERED: SODIUM CHLORIDE 0.9% 1,000 ML IV PRN (11:33)
[2022-03-22] MEDS ORDERED: FUROSEMIDE 40 MG/4 ML VIAL IV ONE ×2 (11:35→18:00)
[2022-03-22 23:16] LABS: Hematocrit 23.5 VOL% (42.0-52.0); Hemoglobin 7.5 GM/DL (14.0-18.0)
[2022-03-23] MEDS ORDERED: SODIUM CHLORIDE 0.9% 1,000 ML IV PRN (02:10)
[2022-03-23] MEDS ORDERED: FUROSEMIDE 40 MG/4 ML VIAL IV ONE (06:04)
[2022-03-23] MEDS ORDERED: LORATADINE 10 MG TABLET PO PRN (08:48)
[2022-03-23] MEDS ORDERED: DICLOFENAC 1% GEL 100 GM TUBE TOP PRN (08:48)
[2022-03-23] MEDS ORDERED: oxyCODONE/ACETAMINOPHEN 5-325 MG TABLET PO PRN (08:48)
[2022-03-23] MEDS ORDERED: MECLIZINE 25 MG TABLET PO PRN (08:48)
[2022-03-23] MEDS ORDERED: METHOTREXATE 2.5 MG TABLET PO SCH (09:00)
[2022-03-23] MEDS: VITAMIN E 400 UNIT CAPSULE PO SCH (11:27)
[2022-03-23] MEDS: GABAPENTIN 400 MG CAPSULE PO SCH ×2 (11:28→21:24)
[2022-03-23] MEDS: busPIRone 5 MG TABLET PO SCH ×2 (11:28→21:20)
[2022-03-23] MEDS: LOSARTAN/HCTZ 50-12.5 MG TABLET PO SCH (11:29)
[2022-03-23] MEDS: sitaGLIPtin 25 MG TABLET PO SCH (11:29)
[2022-03-23] MEDS: CYANOCOBALAMIN 500 MCG TABLET PO SCH (11:29)
[2022-03-23] MEDS: CHOLECALCIFEROL 1,000 UNIT TABLET PO SCH (11:30)
[2022-03-23] MEDS: FERROUS SULFATE 325 MG TABLET PO SCH ×2 (11:30→21:20)
[2022-03-23] MEDS: FOLIC ACID 1 MG TABLET PO SCH (11:30)
[2022-03-23] MEDS: allopurinoL 100 MG TABLET PO SCH (11:31)
[2022-03-23] MEDS: LEVOTHYROXINE 50 MCG TABLET PO SCH (11:31)
[2022-03-23] MEDS: PARoxetine 20 MG TABLET PO SCH (11:45)
[2022-03-23] MEDS: OMEGA 3 ACID ETHYL ESTERS 1 GM CAPSULE PO SCH ×2 (11:45→21:21)
[2022-03-23 11:51] LABS: % Iron Saturation 35.5 % (18-50); Ferritin 1081.4 ng/mL (26-388)
[2022-03-23 18:30] LABS: Hematocrit 32.2 VOL% (42.0-52.0); Hemoglobin 10.5 GM/DL (14.0-18.0)
[2022-03-23] MEDS: MEMANTINE 10 MG TABLET PO SCH ×2 (19:56→21:23)
[2022-03-23] MEDS: OXYBUTYNIN XL 10 MG TABLET PO SCH (21:20)
[2022-03-23] MEDS: DONEPEZIL 10 MG TABLET PO SCH (21:20)
[2022-03-23] MEDS: PANTOPRAZOLE 40 MG TABLET PO SCH (21:21)
[2022-03-23] MEDS: ATORVASTATIN 80 MG TABLET PO SCH (21:21)
[2022-03-24 05:37] LABS: Basophils % 0.8 % (0.0-0.8); Eosinophils # 0.3 10*3/uL (0.0-0.87); Eosinophils % 6.1 % (0.00-10.9); Hematocrit 32.1 VOL% (42.0-52.0); Hemoglobin 10.4 GM/DL (14.0-18.0); Immature Granulocytes % 0.8 %; Immature Granulocytes Absolute 0.04 #; Lymphocytes # 1.7 10*3/uL (1.4-4.0); Lymphocytes % 31.9 % (21.2-54.2); Mean Corpuscular HGB Conc 32.4 GM/DL (32-36); Mean Corpuscular Volume 93.6 FL (87-102); Monocytes # 0.3 10*3/uL (0.11-0.8); Monocytes % 5.9 % (1.7-12.7); NRBC # 0.03 10*3/uL; Neutrophils % 54.5 % (38.7-73.9); Platelet Count 80 T/CUMM (130-400); Red Blood Count 3.43 MC/CUMM (3.8-5.5); Red Cell Distribution Width 19.5 % (9.3-17.3); White Blood Count 5.3 T/CUMM (4-12)
[2022-03-24 05:58] LABS: Albumin 3.1 G/DL (3.4-5.0); Bilirubin,Total 0.8 MG/DL (0.20-1.00); Calcium 9.3 MG/DL (8.5-10.1); Potassium 3.9 MMOL/L (3.5-5.1)
[2022-03-24] MEDS: LEVOTHYROXINE 50 MCG TABLET PO SCH (05:59)
[2022-03-24 06:05] LABS: Hypochromia Slight; Ovalocytes Slight
[2022-03-24 06:06] LABS: Platelet Estimate Decreased
[2022-03-24] MEDS: sitaGLIPtin 25 MG TABLET PO SCH (08:52)
[2022-03-24] MEDS: OMEGA 3 ACID ETHYL ESTERS 1 GM CAPSULE PO SCH ×2 (08:52→21:08)
[2022-03-24] MEDS: LOSARTAN/HCTZ 50-12.5 MG TABLET PO SCH (08:52)
[2022-03-24] MEDS: FOLIC ACID 1 MG TABLET PO SCH (08:52)
[2022-03-24] MEDS: MEMANTINE 10 MG TABLET PO SCH ×2 (08:52→21:09)
[2022-03-24] MEDS: GABAPENTIN 400 MG CAPSULE PO SCH ×2 (08:52→21:08)
[2022-03-24] MEDS: FERROUS SULFATE 325 MG TABLET PO SCH ×2 (08:52→21:09)
[2022-03-24] MEDS: busPIRone 5 MG TABLET PO SCH ×2 (08:52→21:09)
[2022-03-24] MEDS: VITAMIN E 400 UNIT CAPSULE PO SCH (08:53)
[2022-03-24] MEDS: PANTOPRAZOLE 40 MG TABLET PO SCH ×2 (08:53→21:09)
[2022-03-24] MEDS: CYANOCOBALAMIN 500 MCG TABLET PO SCH (08:53)
[2022-03-24] MEDS: PARoxetine 20 MG TABLET PO SCH (08:53)
[2022-03-24] MEDS: CHOLECALCIFEROL 1,000 UNIT TABLET PO SCH (08:53)
[2022-03-24] MEDS: allopurinoL 100 MG TABLET PO SCH (08:53)
[2022-03-24] MEDS: DONEPEZIL 10 MG TABLET PO SCH (21:08)
[2022-03-24] MEDS: ATORVASTATIN 80 MG TABLET PO SCH (21:09)
[2022-03-24] MEDS: OXYBUTYNIN XL 10 MG TABLET PO SCH (21:09)
[2022-03-25 05:09] LABS: Basophils % 0.5 % (0.0-0.8); Eosinophils # 0.3 10*3/uL (0.0-0.87); Eosinophils % 5.4 % (0.00-10.9); Hematocrit 33.8 VOL% (42.0-52.0); Hemoglobin 11.1 GM/DL (14.0-18.0); Immature Granulocytes % 0.7 %; Immature Granulocytes Absolute 0.04 #; Lymphocytes # 1.6 10*3/uL (1.4-4.0); Lymphocytes % 28.7 % (21.2-54.2); Mean Corpuscular HGB Conc 32.8 GM/DL (32-36); Mean Corpuscular Volume 93.9 FL (87-102); Mean Platelet Volume 11.7 FL (9.6-12.0); Monocytes # 0.2 10*3/uL (0.11-0.8); Monocytes % 3.2 % (1.7-12.7); Neutrophils % 61.5 % (38.7-73.9); Red Cell Distribution Width 18.6 % (9.3-17.3); White Blood Count 5.5 T/CUMM (4-12)
[2022-03-25 05:10] LABS: Platelet Count 77 T/CUMM (130-400)
[2022-03-25 05:29] LABS: Calcium 8.9 MG/DL (8.5-10.1); Osmolality,Calculated 298.3 MOS/KG (273-304); Potassium 3.9 MMOL/L (3.5-5.1)
[2022-03-25 05:51] LABS: Ovalocytes Slight; Platelet Estimate Decreased
[2022-03-25] MEDS: LEVOTHYROXINE 50 MCG TABLET PO SCH (07:34)
[2022-03-25] MEDS: FOLIC ACID 1 MG TABLET PO SCH (08:46)
[2022-03-25] MEDS: sitaGLIPtin 25 MG TABLET PO SCH (08:46)
[2022-03-25] MEDS: FERROUS SULFATE 325 MG TABLET PO SCH ×2 (08:46→21:27)
[2022-03-25] MEDS: GABAPENTIN 400 MG CAPSULE PO SCH ×2 (08:46→21:27)
[2022-03-25] MEDS: CYANOCOBALAMIN 500 MCG TABLET PO SCH (08:46)
[2022-03-25] MEDS: LOSARTAN/HCTZ 50-12.5 MG TABLET PO SCH (08:46)
[2022-03-25] MEDS: OMEGA 3 ACID ETHYL ESTERS 1 GM CAPSULE PO SCH ×2 (08:46→21:27)
[2022-03-25] MEDS: PANTOPRAZOLE 40 MG TABLET PO SCH ×2 (08:46→21:27)
[2022-03-25] MEDS: PARoxetine 20 MG TABLET PO SCH (08:46)
[2022-03-25] MEDS: busPIRone 5 MG TABLET PO SCH ×2 (08:46→21:27)
[2022-03-25] MEDS: MEMANTINE 10 MG TABLET PO SCH ×2 (08:46→21:27)
[2022-03-25] MEDS: CHOLECALCIFEROL 1,000 UNIT TABLET PO SCH (08:47)
[2022-03-25] MEDS: VITAMIN E 400 UNIT CAPSULE PO SCH (08:47)
[2022-03-25] MEDS: allopurinoL 100 MG TABLET PO SCH (08:47)
[2022-03-25] MEDS: DONEPEZIL 10 MG TABLET PO SCH (21:27)
[2022-03-25] MEDS: OXYBUTYNIN XL 10 MG TABLET PO SCH (21:27)
[2022-03-25] MEDS: ATORVASTATIN 80 MG TABLET PO SCH (21:27)
[2022-03-26 06:09] LABS: Basophils % 0.4 % (0.0-0.8); Eosinophils # 0.2 10*3/uL (0.0-0.87); Eosinophils % 3.9 % (0.00-10.9); Hematocrit 32.5 VOL% (42.0-52.0); Hemoglobin 10.6 GM/DL (14.0-18.0); Immature Granulocytes % 0.6 %; Immature Granulocytes Absolute 0.03 #; Lymphocytes # 1.3 10*3/uL (1.4-4.0); Lymphocytes % 26.8 % (21.2-54.2); Mean Corpuscular HGB Conc 32.6 GM/DL (32-36); Mean Corpuscular Volume 93.9 FL (87-102); Mean Platelet Volume 11.2 FL (9.6-12.0); Monocytes # 0.1 10*3/uL (0.11-0.8); Monocytes % 2.7 % (1.7-12.7); Neutrophils % 65.6 % (38.7-73.9); Red Blood Count 3.46 MC/CUMM (3.8-5.5); White Blood Count 4.8 T/CUMM (4-12)
[2022-03-26 06:22] LABS: Calcium 9.3 MG/DL (8.5-10.1); Osmolality,Calculated 296.5 MOS/KG (273-304); Potassium 3.9 MMOL/L (3.5-5.1)
[2022-03-26 06:25] LABS: Platelet Count 78 T/CUMM (130-400)
[2022-03-26 06:36] LABS: Eosinophils 6 % (0-10); Lymphocytes 29 % (20-55); Platelet Estimate Decreased; Total Cells Counted 100
[2022-03-26] MEDS ORDERED: propofoL 200 MG/20 ML VIAL IV ONE (12:24)
[2022-03-26] MEDS ORDERED: ETOMIDATE 20 MG/10 ML VIAL IV ONE (12:24)
[2022-03-26] MEDS ORDERED: LIDOCAINE 2% 5 ML VIAL ONE (12:24)
[2022-03-26] MEDS: LEVOTHYROXINE 50 MCG TABLET PO SCH (14:18)
[2022-03-26] MEDS: busPIRone 5 MG TABLET PO SCH ×2 (14:18→21:04)
[2022-03-26] MEDS: FERROUS SULFATE 325 MG TABLET PO SCH ×2 (14:18→21:04)
[2022-03-26] MEDS: OMEGA 3 ACID ETHYL ESTERS 1 GM CAPSULE PO SCH ×2 (14:18→21:03)
[2022-03-26] MEDS: PANTOPRAZOLE 40 MG TABLET PO SCH ×2 (14:19→21:03)
[2022-03-26] MEDS: GABAPENTIN 400 MG CAPSULE PO SCH ×2 (14:19→21:04)
[2022-03-26] MEDS: MEMANTINE 10 MG TABLET PO SCH ×2 (14:19→21:03)
[2022-03-26] MEDS: LOSARTAN/HCTZ 50-12.5 MG TABLET PO SCH (14:41)
[2022-03-26] MEDS: FOLIC ACID 1 MG TABLET PO SCH (14:41)
[2022-03-26] MEDS: sitaGLIPtin 25 MG TABLET PO SCH (14:41)
[2022-03-26] MEDS: PARoxetine 20 MG TABLET PO SCH (14:42)
[2022-03-26] MEDS: allopurinoL 100 MG TABLET PO SCH (14:42)
[2022-03-26] MEDS: CHOLECALCIFEROL 1,000 UNIT TABLET PO SCH (14:42)
[2022-03-26] MEDS: VITAMIN E 400 UNIT CAPSULE PO SCH (14:42)
[2022-03-26] MEDS: CYANOCOBALAMIN 500 MCG TABLET PO SCH (14:42)
[2022-03-26] MEDS: ATORVASTATIN 80 MG TABLET PO SCH (21:03)
[2022-03-26] MEDS: DONEPEZIL 10 MG TABLET PO SCH (21:03)
[2022-03-26] MEDS: OXYBUTYNIN XL 10 MG TABLET PO SCH (21:03)
[2022-03-27] MEDS: LEVOTHYROXINE 50 MCG TABLET PO SCH (05:47)
[2022-03-27 06:03] LABS: Basophils % 0.9 % (0.0-0.8); Eosinophils # 0.1 10*3/uL (0.0-0.87); Eosinophils % 3.9 % (0.00-10.9); Hematocrit 31.9 VOL% (42.0-52.0); Hemoglobin 10.5 GM/DL (14.0-18.0); Immature Granulocytes % 0.9 %; Immature Granulocytes Absolute 0.03 #; Lymphocytes # 0.8 10*3/uL (1.4-4.0); Lymphocytes % 22.3 % (21.2-54.2); Mean Corpuscular HGB Conc 32.9 GM/DL (32-36); Mean Corpuscular Volume 94.1 FL (87-102); Mean Platelet Volume 10.9 FL (9.6-12.0); Monocytes # 0.1 10*3/uL (0.11-0.8); Monocytes % 2.4 % (1.7-12.7); Neutrophils % 69.6 % (38.7-73.9); Platelet Count 89 T/CUMM (130-400); Red Blood Count 3.39 MC/CUMM (3.8-5.5); Red Cell Distribution Width 17.7 % (9.3-17.3); White Blood Count 3.4 T/CUMM (4-12)
[2022-03-27 06:31] LABS: Eosinophils 5 % (0-10); Lymphocytes 23 % (20-55); Platelet Estimate Decreased; Total Cells Counted 100
[2022-03-27 07:47] VITALS: BP 144/63
[2022-03-27] MEDS: FOLIC ACID 1 MG TABLET PO SCH (08:14)
[2022-03-27] MEDS: PANTOPRAZOLE 40 MG TABLET PO SCH (08:14)
[2022-03-27] MEDS: busPIRone 5 MG TABLET PO SCH (08:14)
[2022-03-27] MEDS: PARoxetine 20 MG TABLET PO SCH (08:14)
[2022-03-27] MEDS: LOSARTAN/HCTZ 50-12.5 MG TABLET PO SCH (08:14)
[2022-03-27] MEDS: MEMANTINE 10 MG TABLET PO SCH (08:14)
[2022-03-27] MEDS: FERROUS SULFATE 325 MG TABLET PO SCH (08:14)
[2022-03-27] MEDS: OMEGA 3 ACID ETHYL ESTERS 1 GM CAPSULE PO SCH (08:14)
[2022-03-27] MEDS: sitaGLIPtin 25 MG TABLET PO SCH (08:14)
[2022-03-27] MEDS: GABAPENTIN 400 MG CAPSULE PO SCH (08:14)
[2022-03-27] MEDS: VITAMIN E 400 UNIT CAPSULE PO SCH (08:15)
[2022-03-27] MEDS: allopurinoL 100 MG TABLET PO SCH (08:15)
[2022-03-27] MEDS: CHOLECALCIFEROL 1,000 UNIT TABLET PO SCH (08:15)
[2022-03-27] MEDS: CYANOCOBALAMIN 500 MCG TABLET PO SCH (08:15)
== END 2022-03-27 09:59 | disposition home or self-care (01) ==
LOC: N.2W 10:21 → N.2WOUT 10:21 → N.2W 10:24
PROVIDERS: ADMIT Internal Medicine; ATTEND Internal Medicine